=== PATIENT | female | born 1970 | race Caucasian/White ===

== ENCOUNTER 2017-04-12 22:14 | Observation (INO) ==
[2017-04-12] MEDS ORDERED: MORPHINE 2 MG/ML SYRINGE IVP STA (22:22)
[2017-04-12] MEDS ORDERED: NITROSTAT SL STA (22:22)
[2017-04-12] MEDS ORDERED: ZOFRAN 4 MG/2 ML IVP STA (22:22)
[2017-04-12] MEDS ORDERED: SODIUM CHLORIDE 1,000 ML IV STA (22:22)
[2017-04-12] MEDS ORDERED: PROTONIX IV IVP STA (22:23)
[2017-04-12 22:34] LABS: BASOPHILS # (AUTO) 0.1 K/uL (0-0.2); BASOPHILS % (AUTO) 0.7 % (0.0-3.0); EOSINOPHILS # (AUTO) 0.2 K/ul (0.0-0.7); EOSINOPHILS % (AUTO) 2.8 % (0.0-7.0); HEMATOCRIT 34.9 % (37.0-47.0); HEMOGLOBIN 11.5 g/dl (12.0-16.0); IMMATURE GRANULOCYTE % (AUTO) 0.5 % (0.0-5.0); LYMPHOCYTES % (AUTO) 35.9 (10.0-50.0); MEAN CORPUSCULAR HEMOGLOBIN 25.4 pg (27.0-31.0); MONOCYTES # (AUTO) 0.5 K/uL (0.4-2.0); MONOCYTES % (AUTO) 5.7 (0-10); NEUTROPHILS # (AUTO) 4.6 K/ul (2.0-6.9); NEUTROPHILS % (AUTO) 54.4; PLATELET COUNT 240 10^3/uL (140-440); RED BLOOD COUNT 4.53 10^6/ul (4.20-5.40); WHITE BLOOD COUNT 8.46 K/ul (4.6-10.2)
[2017-04-12 23:08] LABS: ERYTHROCYTE SEDIMENTATION RATE 21 mm/hr (0-20); ESR INTERNAL QC INTERNAL QC VALID
[2017-04-12 23:17] LABS: ALANINE AMINOTRANSFERASE 17 U/L (12-78); ALBUMIN 3.1 g/dL (3.4-5.0); ALBUMIN/GLOBULIN RATIO 1.03; ALKALINE PHOSPHATASE 127 U/L (42-98); AMYLASE 175 U/L (25-115); ANION GAP 13.2; ASPARTATE AMINO TRANSFERASE 10 U/L (15-37); BILIRUBIN,TOTAL 0.27 mg/dL (0.00-1.20); BLOOD UREA NITROGEN 6 mg/dL (7-18); CALCIUM 9.3 mg/dL (8.2-10.2); CARBON DIOXIDE 24 mmol/L (21-32); CHLORIDE 105 mmol/L (98-107); CREATINE KINASE 83 U/L; CREATININE 0.81 mg/dL (0.60-1.30); GLUCOSE 216 mg/dL (70-110); LIPASE 143 U/L (8-78); POTASSIUM 3.2 mmol/L (3.5-5.10); SODIUM 139 mmol/L (136-145); TOTAL PROTEIN 6.1 g/dL (6.4-8.2)
[2017-04-12 23:49] LABS: ADD URINE MICROSCOPIC YES; BILIRUBIN,URINE Negative (NEGATIVE); KETONES,URINE Negative (NEGATIVE); LEUKOCYTE ESTERASE ,URINE 1+ (NEGATIVE); NITRITE,URINE Negative (NEGATIVE); PH,URINE 5.5 (5-9); PROTEIN,URINE Negative (NEGATIVE); URINE, BLOOD 2+ (NEGATIVE)
[2017-04-12] MEDS ORDERED: ASPIRIN CHEWABLE PO STA (23:51)
[2017-04-12 23:55] LABS: BACTERIA,URINE 2+ (NOT PRESENT); TRICHOMONAS,URINE MANY (NOT PRESENT)
[2017-04-12 23:59] LABS: COCAIN SCREEN,URINE NEGATIVE (NEGATIVE)
--- NOTE | 2017-04-13 00:33 | CT ---
Exam: CT angiography of the chest History: Chest pain Technique: [address] of the chest utilizing CT angiography protocol. Multiplanar and thr ee-dimensional reformations were performed. FINDINGS: Technically adequate for evaluation of pulmonary arteries and aorta. There are no pulmonar y artery filling defects. The aorta is normal. The lung windows show no infiltrative opacities. No pleural fluid or pneumothorax. The heart, great vessels and pericardium appear normal. No abnormal ity of the chest wall soft tissues or bony thorax. No abnormalities of the upper abdomen. Impression: 1. No evidence of pulmonary artery thrombus. No acute findings of the chest.
--- NOTE | 2017-04-13 01:33 | ED.PDOC ---
General ED Provider: Dr. ALMA CABALLERO-ER Chief Complaint: Chest Pain Stated Complaint: brittney been having this off and on Time Seen by Physician: 22:15 Mode of Arrival: Walk-In Information Source: Patient Exam Limitations: No limitations Primary Care Provider: MARYANA RODRÍGUEZ Nursing and Triage Documentation Reviewed and Agree: Yes Cardiovascular Complaint Exam - Chest Pain Complaint/Exam Onset: Gradual Duration: 2 weeks Symptoms Are: Still present Timing: Intermittent Initial Severity: Mild Current Severity: Mild Location: Reports: Diffuse Pain Radiates: Reports: Back Character: Reports: Dull, Aching Aggravating: Reports: None Alleviating: Reports: None Associated Signs and Symptoms: Denies: Diaphoresis, Nausea, Vomiting, Fever, Palpitations, Cough, Hemoptysis, Back pain, Abdominal pain, Dizziness, Short of air, Calf pain, Calf swelling Related Surgical History: Reports: None History of Healthcare-Acquired Pneumonia: Reports: No TAD Risk Factors: Reports: None Prior Care for this Complaint: No Recent Stress Test: No Recent Echo/LV Function: No Diminshed Breath Sounds: No Reproducible Chest Wall Pain: No Bilateral Pulses Present: Yes Unequal Pulses Noted: No If Risk Factors for AMI/ACS Consider: EKG, Serial Studies, Oxygen, Aspirin Quality Indicator For Non-Traumatic Chest Pain/Syncope: EKG Performed Patient Advised to Stop Smoking: No Review of Systems - Review Of Systems Constitutional: Reports: No symptoms Eyes: Reports: No symptoms Ears, Nose, Mouth, Throat: Reports: No symptoms Respiratory: Reports: No symptoms Cardiac: Reports: Chest pain GI: Reports: No symptoms : Reports: No symptoms Musculoskeletal: Reports: No symptoms Skin: Reports: No symptoms Neurological: Reports: No symptoms Endocrine: Reports: No symptoms Hematologic/Lymphatic: Reports: No symptoms All Other Systems: Reviewed and Negative Past Medical History - Past Medical History Previously Healthy: No Endocrine: Reports: DM 2, Dyslipidemia Cardiovascular: Reports: Hypertension Respiratory: Reports: None Hematological: Reports: None, Other (polycythemia) Gastrointestinal: Reports: None Genitourinary: Reports: None Neuro/Psych: Reports: None Musculoskeletal: Reports: None Cancer: Reports: None Last Menstrual Period: 1 week ago - Surgical History General Surgical History: Reports: Tubal ligation - Family History Family History: Reports: None - Social History Smoking Status: Current every day smoker Hx Substance Use: No Alcohol Screening: None Lives: With family - Immunizations Tetanus Shot up to Date: Yes Physical Exam - Physical Exam Appearance: Well-appearing Eyes: CLAUDIO, EOMI, Conjunctiva clear ENT: Ears normal, Nose normal, Oropharynx normal Respiratory: Airway patent, Breath sounds clear, Rhonchi Cardiovascular: RRR, Pulses normal, No rub, No murmur GI/: Soft, Nontender, No masses, Bowel sounds normal, No Organomegaly Musculoskeletal: Normal strength, ROM intact, No edema, No calf tenderness Skin: Warm, Dry, Normal color Neurological: Sensation intact Psychiatric: Affect appropriate, Mood appropriate Interpretation - Radiology Interpretation Radiology Interpretation By: Radiologist Radiology Results: Negative Exam Interpreted: CT Scan Physician Notification - Case Discussed Physician Notified: dr rodrigez Critical Care Note - Critical Care Note Total Time (mins): 0 Course - Course Hematology/Chemistry: 04/12/17 22:30 04/12/17 22:30 Orders, Labs, Meds: Lab Review 04/12/17 04/12/17 04/12/17 22:30 22:30 23:40 WBC 8.46 RBC 4.53 Hgb 11.5 L Hct 34.9 L MCV 77.0 L MCH 25.4 L MCHC 33.0 RDW Coeff of Radha 15.9 H Plt Count 240 Immature Gran % (Auto) 0.5 Neut % (Auto) 54.4 Lymph % (Auto) 35.9 Linn % (Auto) 5.7 Eos % (Auto) 2.8 Baso % (Auto) 0.7 Immature Gran # (Auto) 0.0 Neut # 4.6 Lymph # 3.0 Linn # 0.5 Eos # 0.2 Baso # 0.1 ESR 21 H Sodium 139 Potassium 3.2 L Chloride 105 Carbon Dioxide 24 Anion Gap 13.2 BUN 6 L Creatinine 0.81 Estimated GFR (MDRD) 76.00 BUN/Creatinine Ratio 7.40 Glucose 216 H Calcium 9.3 Total Bilirubin 0.27 AST 10 L ALT 17 Alkaline Phosphatase 127 H Total Creatine Kinase 83 Troponin I < 0.0100 Total Protein 6.1 L Albumin 3.1 L Globulin 3.0 Albumin/Globulin Ratio 1.03 Amylase 175 H Lipase 143 H TSH 0.975 Free T4 1.00 Urine Color Urine Clarity Urine pH Ur Specific [place] Urine Protein Urine Glucose (UA) Urine Ketones Urine Blood Urine Nitrite Urine Bilirubin Urine Urobilinogen Ur Leukocyte Esterase Urine Microscopic RBC Urine Microscopic WBC Ur Squamous Epith Cells Urine Bacteria Urine Trichomonas Urine Opiates Screen Positive Ur Oxycodone Screen Negative Urine Methadone Screen Negative Ur Propoxyphene Screen Negative Ur Barbiturates Screen Negative U Tricyclic Antidepress Negative Ur Phencyclidine Scrn Negative Ur Amphetamine Screen Positive U Methamphetamines Scrn Positive U Benzodiazepines Scrn Negative Urine Cocaine Screen Negative U Cannabinoids Screen Negative 04/12/17 23:40 WBC RBC Hgb Hct MCV MCH MCHC RDW Coeff of Radha Plt Count Immature Gran % (Auto) Neut % (Auto) Lymph % (Auto) [place] % (Auto) Eos % (Auto) Baso % (Auto) Immature Gran # (Auto) Neut # Lymph # [place] # Eos # Baso # ESR Sodium Potassium Chloride Carbon Dioxide Anion Gap BUN Creatinine Estimated GFR (MDRD) BUN/Creatinine Ratio Glucose Calcium Total Bilirubin AST ALT Alkaline Phosphatase Total Creatine Kinase Troponin I Total Protein Albumin Globulin Albumin/Globulin Ratio Amylase Lipase TSH Free T4 Urine Color Yellow Urine Clarity Clear Urine pH 5.5 Ur Specific [place] 1.015 Urine Protein Negative Urine Glucose (UA) Trace Urine Ketones Negative Urine Blood 2+ Urine Nitrite Negative Urine Bilirubin Negative Urine Urobilinogen 0.2 Ur Leukocyte Esterase 1+ Urine Microscopic RBC 5-10 Urine Microscopic WBC 5-10 Ur Squamous Epith Cells 20-30 Urine Bacteria 2+ Urine Trichomonas Many Urine Opiates Screen Ur Oxycodone Screen Urine Methadone Screen Ur Propoxyphene Screen Ur Barbiturates Screen U Tricyclic Antidepress Ur Phencyclidine Scrn Ur Amphetamine Screen U Methamphetamines Scrn U Benzodiazepines Scrn Urine Cocaine Screen U Cannabinoids Screen Orders Category Date Time Status EKG-(ED ONLY) Stat CARDIO 04/12/17 22:19 Completed NPO REMINDER: IMAGING ONCE CARE 04/12/17 22:24 Completed IV [ED IV/MEDIPORT/POWERPORT] .ONCE EMERGENCY 04/12/17 22:21 Active AMYLASE Stat LAB 04/12/17 22:30 Completed CBC W/ AUTO DIFF Stat LAB 04/12/17 22:30 Completed COMPREHENSIVE METABOLIC PANEL Stat LAB 04/12/17 22:30 Completed CREATINE KINASE Stat LAB 04/12/17 22:30 Completed ESR Stat LAB 04/12/17 22:30 Completed FREE T4 (FREE THYROXINE) Stat LAB 04/12/17 22:30 Completed LIPASE Stat LAB 04/12/17 22:30 Completed THYROID STIMULATING HORMONE Stat LAB 04/12/17 22:30 Completed TROPONIN I Stat LAB 04/12/17 22:30 Completed URINALYSIS C & S IF INDICATED Stat LAB 04/12/17 23:40 Completed URINE CULTURE Routine LAB 04/12/17 23:55 Received URINE DRUG SCREEN (RAPID FOR ED) [DRUG SCREEN, URINE, LAB 04/12/17 23:40 Completed RAPID] Stat 0.9 % Sodium Chloride [Saline Flush] MEDS 04/12/17 22:21 Ordered 1 syr IVF PRN PRN Aspirin [Aspirin Chewable] MEDS 04/12/17 23:51 Discontinued 324 mg PO ONCE STA Morphine Sulfate [Morphine 2 mg/ml Syringe] MEDS 04/12/17 22:22 Discontinued 2 mg IVP ONCE STA Nitroglycerin [Nitrostat] MEDS 04/12/17 22:22 Discontinued 0.4 mg SL ONCE STA Ondansetron HCl/Pf [Zofran 4 mg/2 ml] MEDS 04/12/17 22:22 Discontinued 4 mg IVP ONCE STA Pantoprazole Sodium [Protonix IV] MEDS 04/12/17 22:23 Discontinued 40 mg IVP ONCE STA Sodium Chloride 0.9% [Sodium Chloride] 1,000 ml MEDS 04/12/17 22:22 Active IV 100 mls/hr CT CHEST PE PROTOCOL Stat RADS 04/12/17 22:23 Completed Medications Generic Name Dose Route Start Last Admin Trade Name Freq PRN Reason Stop Dose Admin Sodium Chloride 1,000 mls @ 100 mls/hr 04/12/17 22:22 04/12/17 23:01 Sodium Chloride IV 04/13/17 08:21 100 mls/hr .Q10H STA Administration Sodium Chloride 1 syr 04/12/17 22:21 04/12/17 23:01 Saline Flush IVF 1 syr PRN PRN Administration To flush IV Discontinued Medications Generic Name Dose Route Start Last Admin Trade Name Freq PRN Reason Stop Dose Admin Aspirin 324 mg 04/12/17 23:51 04/12/17 23:53 Aspirin Chewable PO 04/12/17 23:52 324 mg ONCE STA Administration Morphine Sulfate 2 mg 04/12/17 22:22 04/12/17 23:00 Morphine 2 Mg/Ml Syringe IVP 04/12/17 22:23 2 mg ONCE STA Administration Nitroglycerin 0.4 mg 04/12/17 22:22 04/12/17 23:00 Nitrostat SL 04/12/17 22:23 0.4 mg ONCE STA Administration Ondansetron HCl 4 mg 04/12/17 22:22 04/12/17 23:01 Zofran 4 Mg/2 Ml IVP 04/12/17 22:23 4 mg ONCE STA Administration Pantoprazole Sodium 40 mg 04/12/17 22:23 04/12/17 23:01 Protonix Iv IVP 04/12/17 22:24 40 mg ONCE STA Administration Vital Signs: Temp Pulse Resp BP Pulse Ox 04/12/17 22:15 97.6 F 81 18 149/105 H 96 PHILLIP Risk Score PHILLIP Risk Score: Risk Score Odds of by 30D 0 0.1 (0.1-0.2) 1 0.3 (0.2-0.3) 2 0.4 (0.3-0.5) 3 0.7 (0.6-0.9) 4 1.2 (1.0-1.5) 5 2.2 (1.9-2.6) 6 3.0 (2.5-3.6) 7 4.8 (3.8-6.1) Departure - Departure Time of Disposition: 01:33 Disposition: PLACED OBSERVATION Discharge Problem: Chest pain, Methamphetamine use Instructions: Chest Pain (ED) Condition: Good Pt referred to PMD for follow-up: Yes Allergies/Adverse Reactions: Allergies levofloxacin [From Levaquin] Adverse Reaction (Verified 04/12/17 22:51) Home Medications: Ambulatory Orders Glyburide [Diabeta] 5 mg PO DAILY 01/19/13 Metformin HCl [Fortamet] 1,000 mg PO BID 01/19/13 Carvedilol [Coreg] 12.5 mg PO BID 04/25/14 Amlodipine Besylate [Norvasc] 5 mg PO DAILY 06/27/14 Budesonide/Formoterol Fumarate [Symbicort 160-4.5 Mcg Inhaler] 1 puff IH BID Atorvastatin Calcium [Lipitor] 10 mg PO DAILY 03/13/16 Albuterol Sulfate [Proair Hfa] 2 puff IH Q4H PRN 04/12/17 Disposition Discussed With: Patient
[2017-04-13] MEDS ORDERED: PROAIR HFA IH PRN (01:36)
[2017-04-13] MEDS ORDERED: MORPHINE 2 MG/ML SYRINGE IVP PRN (01:37)
[2017-04-13] MEDS ORDERED: ZOFRAN 4 MG/2 ML IVP PRN (01:38)
[2017-04-13 03:05] VITALS: BMI 40.0
[2017-04-13] MEDS: HUMULIN R SUBCUT PRN ×4 (06:13→21:27)
[2017-04-13 08:04] LABS: TROPONIN I 0.021 ng/ml (0.0000-0.4000)
[2017-04-13] MEDS ORDERED: DECADRON 4 MG/ML SDV IM STA (08:31)
[2017-04-13] MEDS ORDERED: TORADOL IVP STA (08:32)
[2017-04-13] MEDS ORDERED: FLAGYL PO STA (08:33)
[2017-04-13] MEDS ORDERED: GI COCKTAIL PO STA (08:34)
[2017-04-13] MEDS ORDERED: POTASSIUM CHLORIDE PREMIX RUN 40 MEQ in PREMIX 100 ML WATER 2 BAG IV STA (08:35)
[2017-04-13] MEDS ORDERED: K-DUR PO STA (08:35)
[2017-04-13 08:51] LABS: CHOL/HDL RATIO 5.1 (4.5-5.5)
[2017-04-13] MEDS: PROTONIX PO SCH (08:58)
[2017-04-13] MEDS: SYMBICORT 160-4.5 MCG INHALER IH SCH ×2 (08:58→21:20)
[2017-04-13] MEDS: NORVASC PO SCH (08:59)
[2017-04-13] MEDS: LIPITOR PO SCH (09:00)
[2017-04-13] MEDS: DIABETA PO SCH (09:00)
[2017-04-13] MEDS: COREG PO SCH ×2 (09:00→21:20)
[2017-04-13 16:08] LABS: CREATINE KINASE 66 U/L
[2017-04-13] MEDS: CARAFATE PO SCH ×2 (17:30→21:21)
[2017-04-14 05:23] VITALS: BP 142/92; TEMP 979
[2017-04-14] MEDS: PROTONIX PO SCH (05:38)
[2017-04-14] MEDS: CARAFATE PO SCH ×2 (05:38→11:47)
[2017-04-14] MEDS: HUMULIN R SUBCUT PRN (05:38)
[2017-04-14] MEDS: COREG PO SCH (09:33)
[2017-04-14] MEDS: LIPITOR PO SCH (09:34)
[2017-04-14] MEDS: NORVASC PO SCH (09:34)
[2017-04-14] MEDS: DIABETA PO SCH (09:34)
[2017-04-14] MEDS: SYMBICORT 160-4.5 MCG INHALER IH SCH (09:34)
--- NOTE | 2017-04-14 09:56 | ECHOSTRESS ---
Date of Exam: 04/14/17 Ordering Physician: HOSPITALIST--KELSEY RUTHERFORD/HETAL Reason for Echo: CHEST PAIN, STRESS TEST--NO ISCHEMIA M-Mode Normal Adult Results LV Dimensions Normal Adult Results AoV Opening excursions >1.6 LVEDD-base- 3.5-5.8 Ao root dimensions 2.0-3.7 LVESD-base- 3.1-4.6 L. Atrium dimensions 1.9-3.8 Post. Wall thickness 0.8-1.1 IV septum (thickness) 0.7-1.2 Post. Wall excursion 0.72-1.3 Septal motion Systolic motion R. Ventricular cavity 1.5-2.0 LVEF 60% Paradoxical septal wall motion 2-D: NORMAL LEFT VENTRICULAR CONTRACTILITY--RESTING AND POST EXERCISE M-MODE: MV: AV: TV: PV: CHAMBER SIZE: WALL MOTION: NORMAL LEFT VENTRICULAR CONTRACTILITY--RESTING AND POST EXERCISE PERICARDIUM: INTERPRETATION: 1. NORMAL LEFT VENTRICULAR CONTRACTILITY--RESTING AND POST EXERCISE MTDD
--- NOTE | 2017-04-14 10:11 | ECHO2D ---
Date of Exam: 04/14/17 Ordering Physician: HOSPITALIST--KELSEY RUTHERFORD/ANNE Reason for Echo: CHEST PAIN Room #: [id number] M-Mode Normal Adult Results LV Dimensions Normal Adult Results AoV Opening excursions >1.6 >1.6 LVEDD-base- 3.5-5.8 4.5 Ao root dimensions 2.0-3.7 3.4 LVESD-base- 3.1-4.6 L. Atrium dimensions 1.9-3.8 3.9 Post. Wall thickness 0.8-1.1 1.4 IV septum (thickness) 0.7-1.2 1.4 Post. Wall excursion 0.72-1.3 NORMAL Septal motion NORMAL Systolic motion R. Ventricular cavity 1.5-2.0 NORMAL LVEF 60% 70% Paradoxical septal wall motion NORMAL 2-D : 2-D M Mode Echocardiogram was performed using apical four chamber and left parasternal long and short axis views. Mitral, tricuspid and aortic valves appear to be normal. Contractility of the left ventricle seems to be normal, so is the cavity size. Left atrial cavity size and aortic root appear to be normal. There is no pericardial effusion. There is no thrombus noted in the left ventricular or left aortic cavity. No mitral valve prolapse noted. M-MODE: MV: NORMAL AV: NORMAL TV: NORMAL PV: CHAMBER SIZE: NORMAL WALL MOTION: NORMAL PERICARDIUM: NORMAL INTERPRETATION: 1. LEFT VENTRICULAR HYPERTROPHY 2. NORMAL VALVES 3. NORMAL LEFT VENTRICULAR CONTRACTILITY MTDD
--- NOTE | 2017-04-14 10:25 | STRESSECHO ---
Date of Test: 04/14/17 Reason for Exam: ATYPICAL CHEST PAIN Ordering Physician: HOSPITALIST--KELSEY RUTHERFORD/ ANNE Current Medications: PROAIR, METFORMIN, DIABETA, COREG, LIPITOR, NORVASC, SYMBICORT Physical Findings: S1, S2, NO S3 Resting EKG: SINUS RHYTHM/ NO ACUTE CHANGES Target Heart Rate: 148 STAGE MPH/GRADE HEART RATE BPM BLOOD PRESSURE mmhg RHYTHM S-T SEGMENT +/- UP DOWN SYMPTOMS,COMMENTS At Rest 71 178/82 SR X NONE 1 1.7/10% 106 188/86 SR X NONE 2 2.5/12% 135 200/92 SR X NONE 3 3.4/14% 4 4.2/16% 5 5.0/18% Immediately after 135 SR X SHORT OF BREATH Durations of Exercise: 5:47 Maximum Heart Rate Reached: 135 Reason for Termination: SHORT OF BREATH Minutes Post Exercise: 3 HR: 83 BPM BP: N/A SR, +/- Minutes Post Exercise: 5 HR: 65 BPM BP:184/96 SR, +/- INTERPRETATION: 97% OXYGEN SATURATION WITH EXERCISE ON ROOM AIR METS 7.0 1. NO EVIDENCE OF ISCHEMIA BY ST-T WAVE 2. NO CHEST PAIN OR CHEST DISCOMFORT 3. NO ARRHYTHMIAS 4. BLOOD PRESSURE RESPONSE HYPERTENSION WITH EXERCISE AND AT REST NORMAL LEFT VENTRICULAR CONTRACTILITY--RESTING AND POST EXERCISE MTDD
--- NOTE | 2017-04-14 11:36 | PCM.PROG ---
Attending Provider: ATTENDING PROVIDER: Dr. KELSEY RUTHERFORD DATE OF SERVICE: 04/14/17 SUBJECTIVE: This 47 year old WHITE/ F was hospitalized 04/13/17. The patient is lying in bed. No more chest pain. The patient had exercise stress test and echo, test results were negative. REVIEW OF SYSTEMS: CONSTITUTIONAL: No fever, no chills. ENDOCRINE: No weight loss or weight gain. HEENT: No sinus drainage, no sore throat. CVS: No angina symptoms. No CHF symptoms. No palpitations. No atypical chest pain for CAD. No shortness of breath. RESPIRATORY: No cough, no hemoptysis. GI: No melena. No abdominal pain. No nausea, no vomiting. : No hematuria. No polyuria. SKIN: No rash. No wounds. MUSCULOSKELETAL: No pain. STERILE INSTRUMENT TECHNICIAN: No blackout, no dizziness. No headache. No double vision. PSYCHIATRIC: Not anxious; no depression. No suicidal thoughts. No homicidal thoughts. PHYSICAL EXAMINATION: GENERAL: Lying in bed in no distress. VITAL SIGNS: Temperature 979 F, Pulse 73, Respiratory Rate 20, BP 142/92, Pulse Ox 98% HEENT: Normocephalic, atraumatic. Mucosa is dry, pallor positive. NECK: No JVP, no carotid bruit. No lymphadenopathy. CARDIAC: S1, S2, no S3. No murmur, gallop or regurgitation. LUNGS: Clear to auscultation. ABDOMEN: Soft, non-tender. Bowel sounds active. No rigidity, guarding or CVA tenderness. EXTREMITIES: No clubbing, cyanosis or edema. NEUROLOGIC: Awake, alert and oriented x3. LYMPHATIC: No palpable lymph nodes SKIN: Not dry. Intact. MUSCULOSKELETAL: No joint swelling. LAB REVIEW: 04/13/17 11:50 04/13/17 15:35: Total Creatine Kinase 66, Troponin I < 0.0100 04/13/17 11:50: Potassium 4.5 ASSESSMENT: 1. Chest pain noncardiac 2. Substance use 3. Diabetes mellitus 4. Dyslipidemia 5. Hypertension 6. Obesity 7. Nicotine use 8. Lifestyle modification, weight loss PLAN: 1. Will add Cozaar 50 mg daily - new med 2. Discharge home 3. Lifestyle modifications discussed, weight loss, diet and exercise 4. Followup with [facility] 5. Advised not to use any street drugs and the patient promised not to Plan and coordination of the patient's care discussed in the presence of Graduate Civil Engineer and nurse. CONDITION: Stable SCRIBED BY: ISMAEL HOWARD Warp Tier scribed while in presence of service performed by Dr. KELSEY RUTHERFORD on 04/14/17 ([id number])
--- NOTE | 2017-04-14 15:26 | CONS ---
DATE OF CONSULTATION: 04/13/17 REASON FOR CONSULTATION: Chest pain HISTORY OF PRESENT ILLNESS: 47 year old white female hospitalized with chest pain which is center of the chest going through to the back with coughing. The patient has bronchitis type of symptoms. REVIEW OF SYSTEMS: CONSTITUTIONAL: No night sweats. No fatigue, malaise, lethargy. No fever or chills. HEENT: Eyes: No visual changes. No eye pain. No eye discharge. ENT: No sinus drainage. No epistaxis. No sinus pain. No sore throat. No odynophagia. No ear pain. No congestion. RESPIRATORY: Cough with congestion with pleuritic type of pain. No hemoptysis. No shortness of breath. CARDIOVASCULAR: No angina symptoms. No CHF symptoms. No atypical chest pain for CAD. No palpitations. No orthopnea. No PND. No exertional chest discomfort. GASTROINTESTINAL: No abdominal pain. No nausea or vomiting. No diarrhea or constipation. No hematemesis. No hematochezia. GENITOURINARY: No urgency. No frequency. No dysuria. No hematuria. No obstructive symptoms. No discharge. No pain. No significant abnormal bleeding. MUSCULOSKELETAL: No musculoskeletal pain. No joint swelling. NEUROLOGICAL: No headache. No neck pain. No syncope. No seizures. No dizziness. PSYCHIATRIC: Not anxious. No depression. No suicidal thoughts. No homicidal thoughts. SKIN: No rash. No lesions. No wounds. ENDOCRINE: No unexplained weight loss. No weight gain. HEMATOLOGIC/LYMPHATIC: No anemia. No purpura. No petechiae. No prolonged or excessive bleeding. No palpable lymph nodes. PHYSICAL EXAMINATION: HEENT: Head normocephalic, atraumatic. Eyes: Extraocular muscles are intact. Pupils are equal, round and reactive to light and accommodation. Ears: No lesions. Nose appeared normal. Throat: No exudate or erythema. NECK: Supple. No JVP, no carotid bruit. No lymphadenopathy or thyromegaly. LUNGS: Clear to auscultation. Percussion note normal. Chest symmetrical. HEART: S1, S2, no S3. No murmurs. No cyanosis or clubbing. No ascites. Pulses: Dorsalis pedis and posterior tibial pulses +1 bilaterally. ABDOMEN: Soft. Nontender. Bowel sounds active. No CVA tenderness. No mass felt. EXTREMITIES: No edema. Full range of motion of all extremities, equal. NEUROLOGIC: No focal deficit. Cranial nerves II through XII are grossly intact. No headache, no double vision or headache. SKIN: Not dry. Intact. Turgor - normal. LYMPHATIC: No palpable lymph nodes/no lymphedema. MUSCULOSKELETAL: Normal joints with no swelling. Muscle tone is normal. LABS: EKG sinus rhythm, no acute changes, telemetry sinus rhythm with no ST-T wave change. Cardiac markers negative. ASSESSMENT: 1. Chest pain etiology likely non cardiac by history. The patient's BMI is 40 with morbid obesity. RECOMMENDATIONS: 1. The patient explained about the diet to lose weight 2. The patient is already educated about coronary artery disease and the risk factors, like smoking, weight and sedentary lifestyle, diabetes Mellitus, dyslipidemia, hypertension and family history etc. Advised how to modify the risk factors. 3. Do stress echo and echo tomorrow morning. 4. Advised to take baby aspirin a day 5. She will be put on ARB or Olvin inhibitor because of diabetes mellitus. 6. A1c goal discussed 6-7 NOTE: The patient is diabetic and she is already on Atorvastatin. CONDITION: Stable. The patient was seen and examined with Nurse Practitioner. ADDENDUM: The patient's lipid profile showed that the patient's non-HDL is less than 70 which is excellent. The patient doesn't need to be on any medications for triglycerides, they are acceptable in number 220. The patient was explained about that she needs to keep her non-HDL below 100. There is no need to go by LDL level in this patient. The patient's A1c is 8.1, again discussed about the goal should be between 6-7 preferably close to 6.5. Eye examination by eye doctor is strongly advised every yearly. APARNAD
--- NOTE | 2017-04-18 15:35 | CONS ---
DATE OF SERVICE: 04/14/17 CONSULT FOLLOWUP SUBJECTIVE: 47 year old black female hospitalized with chest pain. The patient's chest pain is more like a pleuritic type, sharp shooting pain unrelated to exertion. REVIEW OF SYSTEMS: CONSTITUTIONAL: No night sweats. No fatigue, malaise, lethargy. No fever or chills. HEENT: Eyes: No visual changes. No eye pain. No eye discharge. ENT: No runny nose. No epistaxis. No sinus pain. No sore throat. No odynophagia. No ear pain. No congestion. RESPIRATORY: No cough, no congestion. No hemoptysis. CARDIOVASCULAR: No angina symptoms. No CHF symptoms. No atypical chest pain for CAD. No palpitations. No shortness of breath. No PND. No Orthopnea. GASTROINTESTINAL: No abdominal pain. No nausea or vomiting. No diarrhea or constipation. No hematemesis. No hematochezia. GENITOURINARY: No urgency. No frequency. No dysuria. No hematuria. No obstructive symptoms. No discharge. No pain. No significant abnormal bleeding. MUSCULOSKELETAL: No musculoskeletal pain. No joint swelling. No arthritis. NEUROLOGICAL: No headache. No neck pain. No syncope. No seizures. No dizziness. PSYCHIATRIC: Not anxious. No depression. No suicidal thoughts. No homicidal thoughts. SKIN: No rash. No lesions. No wounds. ENDOCRINE: No unexplained weight loss. No weight gain. HEMATOLOGIC/LYMPHATIC: No anemia. No purpura. No petechiae. No prolonged or excessive bleeding. No palpable lymph nodes. PHYSICAL EXAMINATION: GENERAL: The patient is oriented to time, place and person. VITAL SIGNS: Temperature 97.9, pulse 73, respiratory rate 20, blood pressure 142 /92 and pulse ox 98%. HEENT: Head normocephalic, atraumatic. Eyes: Extraocular muscles are intact. Pupils are equal, round and reactive to light and accommodation. Ears: No lesions. Nose appeared normal. Throat: No exudate or erythema. NECK: Supple. No JVD, no carotid bruit. No lymphadenopathy or thyromegaly. LUNGS: Decreased breath sounds but clear to auscultation. Percussion note normal. Chest symmetrical. HEART: S1, S2, no S3. No murmurs. No cyanosis or clubbing. No ascites. Pulses: Dorsalis pedis and posterior tibial pulses +1 to +2 both sides. ABDOMEN: Soft. Nontender. Bowel sounds active. No CVA tenderness. No mass felt. EXTREMITIES: No edema. Full range of motion of all extremities, equal. NEUROLOGIC: No focal deficit. Cranial nerves II through XII are grossly intact. No headache, no double vision or headache. SKIN: Not dry. Intact. Turgor - normal. LYMPHATIC: No palpable lymph nodes/no lymphedema. MUSCULOSKELETAL: Normal joints with no swelling. Muscle tone is normal. LABS: The patient has an echocardiogram done which showed LVH borderline with normal LV contractility. Stress echo was negative for ischemia. Blood pressure was elevated at rest and also with exercise. Cardiac markers are negative. Telemetry sinus rhythm with no ST-T wave change and EKG sinus rhythm with no acute changes. ASSESSMENT: 1. Chest pain seems to be fairly atypical for coronary insufficiency 2. Obesity 3. Dyslipidemia 4. Smoker 5. Hypertension RECOMMENDATIONS: 1. Coronary artery disease angina discussed with the patient with symptoms. The patient is at high risk of developing it. 2. Counseling for smoking done 3. Morbidly obesity, advised bariatric referral and decline 4. Counseling for diet done 5. The patient's non HDL less than 100 which is desirable for this patient for lifetime. 6. A1c 8.1 goal between 6-7 discussed. 7. Add Cozaar 50mg 8. Angiotensin receptive shanelle needed for patient's hypertension and also for diabetic kidney's 9. Add baby Aspirin 81mg PO daily 10.Continue the rest of the medications 11.Blood pressure goal should be 130/80 or under CONDITION: Stable. Thanks for referral. Will sign out of the case. DIVINA
--- NOTE | 2017-04-18 15:36 | CONS ---
04/13/17: Level 5 04/14/17: Extensive MTDD
--- NOTE | 2017-04-21 08:59 | PN ---
DATE OF SERVICE: 04/13/17 SUBJECTIVE: The patient came to the emergency room for the chest pain, midsternal, heaviness, tiredness with shortness of breath, pain radiating to the left arm. This is a 47 year old female with a history of diabetes, hypertension. The patient did do some street drugs, methamphetamine, which started the pain as per the patient, but the patient was worried about the heart and came to the emergency room for the evaluation. EKG was normal sinus rhythm and the first set of cardiac enzymes were negative. At that time, the patient is seen and examined by Dr. Porter and admitted to the hospital for ruling out acute coronary syndrome. REVIEW OF SYSTEMS: CONSTITUTIONAL: No fever, no chills. HEENT: Normal. ENDOCRINE: No weight gain, no weight loss. CVS: No angina symptoms. No CHF symptoms. No palpitations. Chest pain and shortness of breath. Tightness of the chest. No PND, no orthopnea. RESPIRATORY: No cough, no hemoptysis. GI: No nausea, no vomiting. No abdominal pain. : No hematuria. No polyuria. MUSCULOSKELETAL:. No joint swelling. PSYCHIATRIC: Not anxious. No depression. No suicidal thoughts. No homicidal thoughts. SKIN: Intact. No rash. PHYSICAL EXAMINATION: V/S: Blood pressure 153/84, respiratory rate 16, heart rate 73, temperature 98.3 , saturation 94 on room air. HEENT: Normocephalic, atraumatic. Mucosa dry. Pallor positive. No icterus. NECK: Supple. No JVD, no carotid bruit. No lymphadenopathy. LUNGS: Decreased and clear. No rales or rhonchi. HEART: S1, S2 normal. No S3. No murmur, gallop or regurgitation. ABDOMEN: Epigastric discomfort is present, but no tenderness. Bowel sounds active. No rigidity. No rebound or guarding. No CVA tenderness. EXTREMITIES: No clubbing, cyanosis or pedal edema. MUSCULOSKELETAL: No joint swelling. NEUROLOGIC: Awake, alert, oriented times three. No focal deficit. LYMPHATIC: No lymph nodes palpable. SKIN: Intact and dry. LABS: White count 8.46, hemoglobin 11.5, hematocrit 34.2, platelet count 240, sodium 139, potassium 3.2, chloride 105, bicarb 24, BUN 6, creatinine 0.81, glucose 216. First set of cardiac enzymes were negative. Amylase 175, lipase 143. UA is negative. Drug screen is positive for the opiods, amphethamine and methamphetamine. ASSESSMENT: 1. CHEST PAIN, RULE OUT ACUTE CORONARY SYNDROME 2. MILDLY ELEVATED AMYLASE AND LIPASE 3. HISTORY OF DIABETES 4. HYPERTENSION 5. DYSLIPIDEMIA 6. SUBSTANCE USE 7. OBESITY 8. NICOTINE USE 9. HYPOKALEMIA 10. ANEMIA PLAN: 1. Admit the patient to observation. 2. CBC and CMP today and daily. 3. Cardiac enzymes and Troponins. 4. Cardiology consultation with Dr. Patton. 5. Continue the home medications. 6. Accuchecks with coverage. 7. Morphine prn. 8. Zofran prn. 10. Protonix. 11. IV fluids. 12. Will follow up with the patient in daily rounds. TIME SPENT: More than 40 minutes MTDLisa
--- NOTE | 2017-04-21 12:46 | CONS ---
DATE OF CONSULTATION: 04/13/17 REASON FOR CONSULTATION/HISTORY OF PRESENT ILLNESS: This is a 47 year old female who came to the emergency room complaining of chest pain and she was admitted as hospitalist patient under Dr. Finn. She reports that her chest pain started on week ago with intermittent sharp and stabbing at first this associated with movement not necessarily exertion. Her shoulder have been sore. She has not had a heart catheterization before. She does think that she has had a stress test. Her CT of the chest was normal. She is somewhat of a poor historian and her urine drug test was positive for methamphetamines, opioids and amphetamines. She was subsequently admitted and we were consulted due to the chest pain. REVIEW OF SYSTEMS: CONSTITUTIONAL: No night sweats. No fatigue, malaise, lethargy. No fever or chills. HEENT: Eyes: No visual changes. No eye pain. No eye discharge. ENT: No sinus drainage. No epistaxis. No sinus pain. No sore throat. No odynophagia. No ear pain. No congestion. RESPIRATORY: No cough, no congestion. No hemoptysis. No shortness of breath. CARDIOVASCULAR: No angina symptoms. No CHF symptoms. Atypical chest pain for CAD. No palpitations. No orthopnea. GASTROINTESTINAL: No abdominal pain. No nausea or vomiting. No diarrhea or constipation. No hematemesis. No hematochezia. GENITOURINARY: No urgency. No frequency. No dysuria. No hematuria. No obstructive symptoms. No discharge. No pain. No significant abnormal bleeding. MUSCULOSKELETAL: No musculoskeletal pain. No joint swelling. NEUROLOGICAL: No headache. No neck pain. No syncope. No seizures. No dizziness. The patient is alert and oriented. PSYCHIATRIC: Not anxious. No depression. No suicidal thoughts. No homicidal thoughts. SKIN: No rash. No lesions. No wounds. ENDOCRINE: No unexplained weight loss. No weight gain. HEMATOLOGIC/LYMPHATIC: No anemia. No purpura. No petechiae. No prolonged or excessive bleeding. No palpable lymph nodes. MEDICATIONS: Albuterol inhaler PRN Norvasc 5mg daily Lipitor 10mg daily Symbicort inhaler twice a day Coreg 12.5mg twice a day Glyburide 5mg daily ALLERGIES: PAST MEDICAL HISTORY: Diabetes mellitus, type 2 Hypertension Dyslipidemia COPD Obesity Illicit drug use Sees Aye Shaw at [facility] in [place] as her PCP PAST SURGICAL HISTORY: Tubal ligation SOCIAL/PERSONAL/FAMILY HISTORY: The patient is a pack per day smoker. She current lives alone and she denies any alcohol or illicit drug use however her urine drug test was positive for methamphetamine, opioids and amphetamines. LABS ON ADMISSION: TSH 0.9, T4 1, WBC 8.4, hgb 11.5, hct 34.9, plt count 240, sodium 1398, potassium 3.2, glucose 216, BUN 6, creatinine 0.81. PHYSICAL EXAMINATION: VITAL SIGNS: Temperature 98.3, heart rate 73, respiratory rate 16, blood pressure 153/84 and pulse ox 94%. HEENT: Head normocephalic, atraumatic. Eyes: Extraocular muscles are intact. Pupils are equal, round and reactive to light and accommodation. Ears: No lesions. Nose appeared normal. Throat: No exudate or erythema. NECK: Supple. No JVD, no carotid bruit. No lymphadenopathy or thyromegaly. LUNGS: Clear with diminished breath sounds bilaterally. Percussion note normal. Chest symmetrical. HEART: S1, S2, no S3. No murmurs. No cyanosis or clubbing. No ascites. Pulses: Dorsalis pedis and posterior tibial pulses +1 to +2 both sides. No clicks or rubs. No rhonchi or wheezes or rales. ABDOMEN: Soft. Nontender. Bowel sounds active times four quadrants. No CVA tenderness. No mass felt. EXTREMITIES: No edema. Full range of motion of all extremities, equal. NEUROLOGIC: No focal deficit. Cranial nerves II through XII are grossly intact. No headache, no double vision or headache. The patient is alert and oriented. SKIN: Not dry. Intact. Turgor - normal. LYMPHATIC: No palpable lymph nodes/no lymphedema. MUSCULOSKELETAL: Normal joints with no swelling. Muscle tone is normal. ASSESSMENT: 1. Atypical chest pain 2. Hypertension 3. COPD 4. Diabetes Mellitus type 2 RECOMMENDATIONS: 1. Will do echo and stress echo today 2. Lipids T4 TSH and A1c 3. Information provided regarding smoking cession 4. All labs were reviewed and discussed 5. Chest CT was normal 6. The patient is a poor historian 7. Drug use noted information regards illicit drug use will be provided. [facility]
--- NOTE | 2017-05-17 11:12 | CONS ---
DATE OF CONSULTATION: 04/13/17 HISTORY OF PRESENT ILLNESS: This is a 47-year-old female who came to the emergency room complaining of chest pain. She was admitted as a hospitalist patient under Dr. Finn. She reports that her chest pain started one week ago. It is intermittent, sharp and stabbing at first, associated with movement not necessarily with exertion. Her shoulders have been sore. She has not had a heart catheterization before. She does think that she has had a stress test. Her CT of the chest was normal. She is somewhat of a poor historian and her urine drug test was positive for methamphetamines, opiates and amphetamines. She was subsequently admitted and we were consulted due to the chest pain. She currently sees Aye Shaw at [facility] in [place] as her PCP. PAST MEDICAL HISTORY: Diabetes mellitus Type 2 Hypertension Dyslipidemia COPD Obesity Obviously, illicit drug use PAST SURGICAL HISTORY: Includes tubal ligation. SOCIAL HISTORY: The patient is a one pack per day smoker. She currently lives alone. She denies any alcohol or ilicit drug use; however her urine drug test was positive for methamphetamines, opiates and amphetamines. LABS: On admission include TSH 0.9, T4 1, white count 8.4, hemoglobin 11.5, hematocrit 34.9, platelets 240, sodium 139, potassium 3.2, glucose 216, BUN 6, creatinine 0.81. REVIEW OF SYSTEMS: CONSTITUTIONAL: No night sweats. No fatigue, malaise, lethargy. No fever or chills. In no acute distress. HEENT: Eyes: No visual changes. No eye pain. No eye discharge. ENT: No sinus drainage. No epistaxis. No sinus pain. No sore throat. No odynophagia. No ear pain. No congestion. RESPIRATORY: No cough, no congestion. No hemoptysis. No shortness of breath. CARDIOVASCULAR: No angina symptoms. No CHF symptoms. Positive for atypical chest pain for CAD. No palpitations. No orthopnea. GASTROINTESTINAL: No abdominal pain. No nausea or vomiting. No diarrhea or constipation. No hematemesis. No hematochezia. GENITOURINARY: No urgency. No frequency. No dysuria. No hematuria. No obstructive symptoms. No discharge. No pain. No significant abnormal bleeding. MUSCULOSKELETAL: No musculoskeletal pain. No joint swelling. NEUROLOGICAL: Alert and oriented. No headache. No neck pain. No syncope. No seizures. No dizziness. PSYCHIATRIC: Not anxious. No depression. No suicidal thoughts. No homicidal thoughts. SKIN: No rash. No lesions. No wounds. ENDOCRINE: No unexplained weight loss. No weight gain. HEMATOLOGIC/LYMPHATIC: No anemia. No purpura. No petechiae. No prolonged or excessive bleeding. No palpable lymph nodes. MEDICATIONS: Albuterol inhaler p.r.n. Norvasc 5 mg daily Lipitor 10 mg daily Symbicort inhaler b.i.d. Coreg 12.5 mg b.i.d. Glyburide 5 mg daily ALLERGIES: LEVOFLOXACIN PHYSICAL EXAMINATION: VITAL SIGNS: Temperature 98.3, heart rate 73, respirations 16, BP 153/84, pulse ox 94%. HEENT: Head normocephalic, atraumatic. Eyes: Extraocular muscles are intact. Pupils are equal, round and reactive to light and accommodation. Ears: No lesions. Nose appeared normal. Throat: No exudate or erythema. NECK: Supple. No JVD, no carotid bruit. No lymphadenopathy or thyromegaly. LUNGS: Clear to auscultation with diminished breath sounds bilaterally. No rhonchi, wheezes or rales. Percussion note normal. Chest symmetrical. HEART: S1, S2, no S3. No murmurs, clicks or rubs. No cyanosis or clubbing. No ascites. Pulses: Dorsalis pedis and posterior tibial pulses +1 to +2 both sides. ABDOMEN: Soft. Nontender. Bowel sounds active times four quadrants. No CVA tenderness. No mass felt. EXTREMITIES: No clubbing, no cyanosis, no joint swelling, no redness, no edema. Full range of motion of all extremities, equal. NEUROLOGIC: Alert and oriented. No focal deficit. Cranial nerves II through XII are grossly intact. No headache, no double vision or headache. SKIN: Not dry. Intact. Turgor - normal. LYMPHATIC: No palpable lymph nodes/no lymphedema. MUSCULOSKELETAL: Normal joints with no swelling. Muscle tone is normal. ASSESSMENT: 1. ATYPICAL CHEST PAIN 2. HYPERTENSION 3. COPD 4. DIABETES MELLITUS TYPE 2 PLAN: 1. Will do echo and stress echo today 2. Lipids, T4, TSH and A1C 3. Information provided regarding smoking cessation. All labs reviewed and discussed. 4. Chest CT was normal. 5. The patient is a poor historian. 6. Drug use noted. Information regarding illicit drug use will be provided. MTDD
--- NOTE | 2017-05-25 10:30 | SSS ---
DATE OF SERVICE: 04/14/17 REASON FOR ADMISSION/HISTORY OF PRESENT ILLNESS: The patient came to the emergency room for the chest pain, midsternal, heaviness , tiredness with shortness of breath, pain radiating to the left arm. This is a 47 year old female with a history of diabetes, hypertension. The patient did do some street drugs, methamphetamine, which started the pain as per the patient , but the patient was worried about the heart and came to the emergency room for the evaluation. EKG was normal sinus rhythm and the first set of cardiac enzymes were negative. At that time, the patient is seen and examined by Dr. Porter and admitted to the hospital for ruling out acute coronary syndrome. REVIEW OF SYSTEMS: CONSTITUTIONAL: No night sweats. No fatigue, malaise, lethargy. No fever or chills. HEENT: Eyes: No visual changes. No eye pain. No eye discharge. ENT: No runny nose. No epistaxis. No sinus pain. No sore throat. No odynophagia. No ear pain. No congestion. RESPIRATORY: No cough, no congestion. No hemoptysis. Some shortness of breath. CARDIOVASCULAR: No angina symptoms. No CHF symptoms. No atypical chest pain for CAD. No palpitations. No orthopnea. Chest pain , sharp type left side increasing intensity. Pain radiating to the left side of the neck and shoulder. No PND. GASTROINTESTINAL: No abdominal pain. No nausea or vomiting. No diarrhea or constipation. No hematemesis. No hematochezia. GENITOURINARY: No dysuria. No hematuria. No obstructive symptoms. No discharge. No pain. No significant abnormal bleeding. MUSCULOSKELETAL: No musculoskeletal pain. No joint swelling. NEUROLOGICAL: Awake, alert, oriented to time, place and person. No headache. No neck pain. No syncope. No seizures. No dizziness. PSYCHIATRIC: Not anxious. No depression. No suicidal thoughts. No homicidal thoughts. SKIN: No rash. No lesions. No wounds. ENDOCRINE: No unexplained weight loss. No weight gain. HEMATOLOGIC/LYMPHATIC: No anemia. No purpura. No petechiae. No prolonged or excessive bleeding. No palpable lymph nodes. PAST HISTORY: Diabetes Hypertension Dyslipidemia Substance use Obesity Nicotine use Anemia PAST SURGICAL HISTORY: Tubal ligation 10 years ago PERSONAL/FAMILY HISTORY/SOCIAL HISTORY: The does smoke. Positive for the substance use; amphetamine and methamphetamine and opioids. Family history is significant for diabetes, lung cancer, heart failure. PHYSICAL EXAMINATION: VITAL SIGNS: Blood pressure 142/92, respiratory rate 20, oxygen saturation 98, temperature 97.9, heart rate 73. HEENT: Head normocephalic, atraumatic. Eyes: Extraocular muscles are intact. Pupils are equal, round and reactive to light and accommodation. Ears: No lesions. Nose appeared normal. Throat: No exudate or erythema. Mucosa dry. NECK: Supple. No JVD, no carotid bruit. No lymphadenopathy or thyromegaly. LUNGS: Decreased and clear to auscultation. Percussion note normal. Chest symmetrical. HEART: S1, S2, no S3. No murmurs. No cyanosis or clubbing. No ascites. Pulses: Dorsalis pedis and posterior tibial pulses +1 to +2 both sides. ABDOMEN: Soft. Nontender. Bowel sounds active. No CVA tenderness. No mass felt. EXTREMITIES: No edema. Full range of motion of all extremities, equal. NEUROLOGIC: No focal deficit. Cranial nerves II through XII are grossly intact. No headache, no double vision or headache. Awake, alert and oriented times three. SKIN: Not dry. Intact. Turgor - normal. LYMPHATIC: No palpable lymph nodes/no lymphedema. MUSCULOSKELETAL: Normal joints with no swelling. Muscle tone is normal. ALLERGIES: Levofloxacin MEDICATIONS: Fortamet Diabeta Coreg Norvasc Symbicort Lipitor ProAir LABS/EKG'S/X-RAY/ECHO/ABG: WBC 8.46, hgb 11.5, hct 34.9, plt count 240, Sodium 139, potassium 3.2, chloride 105, bicarb 24, BUN 6, creatinine 0.81, glucose 216, HPA1c 8.1, triglyceride 220, total cholesterol is 122, toxicology is positive.Amylase is 175, lipase 143. Positive drug screen for the opioids, amphetamine and methamphetamine. BRIEF HOSPITAL COURSE: The patient was admitted to the hospital with left sided chest pain. Did the blood work, three sets are cardiac enzymes are negative. Cardiology consultation obtained with Dr. Patton. Stress test and echocardiogram were negative with ejection fraction 60%. Her A1c was 8.19 and dyslipidemia was present. The patient was counseled again yesterday about doing drugs, Amphetamine and Methamphetamine. Explained the risks of the endocarditis and verbalized understanding. The patient is being discharged home. PROGRESS NOTES: See EMR. DIAGNOSES: 1. Chest pain, noncardiac 2. Polysubstance use 3. Diabetes with A1c 8.1 4. Hypertension 5. Dyslipidemia 6. Nicotine use 7. Hypokalemia 8. Anemia 9. Obesity RECOMMENDATIONS/PLAN: 1. Discharge the patient home 2. Lifestyle modification 3. Weight loss, diet control 4. Cozaar 50mg PO daily 5. Start walking, loose weight 6. Short distance exercise and walking 7. Take the medication, no street drugs 8. Keep followup with Dr. Shaw at [facility] TIME SPENT: More than 70 minutes. DIVINA
== END 2017-04-14 12:46 | disposition home or self-care (01) ==
LOC: ED 22:14 → MEDSURG A 04-13 02:08
PROVIDERS: ADMIT Emergency Medicine; ATTEND Emergency Medicine
DX: R07.89 Other chest pain (principal); F15.90 Other stimulant use, unspecified, uncomplicated; F11.90 Opioid use, unspecified, uncomplicated; R06.02 Shortness of breath; I10 Essential (primary) hypertension; E11.9 Type 2 diabetes mellitus without complications; M79.602 Pain in left arm; E78.5 Hyperlipidemia, unspecified; E87.6 Hypokalemia; D64.9 Anemia, unspecified; E66.9 Obesity, unspecified; R74.8 Abnormal levels of other serum enzymes; F17.200 Nicotine dependence, unspecified, uncomplicated; Z79.84 Long term (current) use of oral hypoglycemic drugs
CPT/HCPCS: 36415; 80053; 80061; 80306; 81001; 82150; 82550; 82962; 83036; 83690; 84132; 84439; 84443; 84484; 85025; 85651; 87086; 93005; 93010; 96361; 96365; 96372; 96375; 97802; 99217; 99220; 99225; 99245; 99284